=== PATIENT | male | born 1980 | race Caucasian/White ===

== ENCOUNTER 2016-12-25 07:16 | Emergency (ER) | payer SELFPAY ==
[~2016-12-25] VITALS: Ht 182.9 cm; Wt 84.0 kg
[2016-12-25 07:21] VITALS: Ht 182.9 cm; Wt 84.0 kg
[2016-12-25] MEDS ORDERED: LORAZEPAM 1 MG TAB PO ONE (08:00)
--- NOTE | 2016-12-25 08:21 | ERD ---
ER Documentation Chief Complaint Date/Time DATE: 12/25/16 TIME: 08:19 Chief Complaint pt states took crystal meth yesterday, went to another hosp "It didnt work HPI 36-year-old male presents to the emergency department complaining of feeling anxious. Patient states that he has been using methamphetamine for the last 24 hours as well as alcohol. Currently he feels anxious but denies suicidal or homicidal thoughts. He denies auditory or visual hallucinations. He has no medical complaints. ROS All systems reviewed and are negative except as per history of present illness. Allergies Allergies: Coded Allergies: No Known Allergy (Unverified , 12/25/16) PMhx/Soc Medical and Surgical Hx: pt denies Medical Hx, pt denies Surgical Hx Hx Alcohol Use: No Hx Substance Use: Yes Hx Tobacco Use: No Smoking Status: Current every day smoker FmHx Noncontributory for chief complaint Physical Exam Vitals Vital Signs Date Time Temp Pulse Resp B/P Pulse Ox O2 Delivery O2 Flow Rate FiO2 12/25/16 07:21 98.1 63 20 150/73 100 Physical Exam GENERAL: The patient is well developed and appropriate for usual state of health in no apparent distress HEENT: Pupils equal, round, and reactive to light. EOMI. There is no scleral icterus. NECK: C-spine is soft and supple, there is no meningismus. There is no cervical lymphadenopathy. LUNGS: Clear to auscultation bilaterally. There are no rales, wheezes or rhonchi. HEART: Regular rate and rhythm, no murmurs, clicks, rubs or gallops. ABDOMEN: Soft, non-tender, non-distended. There are bowel sounds in all four quadrants. No rebound or guarding. EXTREMITIES: There is no peripheral cyanosis or edema. No focal swelling or erythema. NEURO: The patient moves all four extremities with 5/5 strength. Cranial nerves II - XII are intact. Normal gait. Alert and oriented SKIN: There is no apparent rash or petechiae. HEME/LYMPHATIC: There is no evidence of excessive bruising or lymphedema. PSYCHIATRIC: Patient is awake alert and oriented and able to express a care plan for himself he appears to be anxious and somewhat paranoid. He is possibly responding to inappropriate internal stimuli but is denying significant auditory or visual hallucinations. He seems to have insight and judgment. Results 24 hrs Current Medications Medications (Trade) Dose Ordered Sig/Payal Route PRN Reason Start Time Stop Time Status Last Admin Dose Admin Lorazepam (Ativan) 2 mg ONCE ONCE PO 12/25/16 08:00 12/25/16 08:01 DC 12/25/16 07:44 Procedures/MDM Patient was taken to a room, seen and evaluated. Comfort measures were initiated. REEVALUATION: After Ativan, patient was calm and cooperative and felt better. He continued to demonstrate no evidence of being either a danger to himself or others and had no significant cardiac or neurologic findings associated with the methamphetamine. MEDICAL DECISION MAKIN-year-old male presents with stigmata of methamphetamine ingestion. At this time he shows no evidence of high risk medical psychiatric or social concerns. Overall, he appears to be clinically well and appropriate for outpatient care. Departure Diagnosis: Primary Impression: Drug use Condition: Stable Patient Instructions: Drug Abuse Additional Instructions: Please see the psychiatrist and consider Narcotics Anonymous NAHOMI FORTUNE Dec 25, 2016 08:21
== END 2016-12-25 09:05 | disposition home or self-care (01) ==
LOC: E/R 07:16
DX: F15.90 Other stimulant use, unspecified, uncomplicated (principal); F17.210 Nicotine dependence, cigarettes, uncomplicated
CPT/HCPCS: 99283